=== PATIENT | female | born 1990 | race Caucasian/White ===

== ENCOUNTER 2016-09-17 18:59 | Emergency (ER) | payer OTHER ==
[~2016-09-17] VITALS: Ht 167.6 cm; Wt 118.4 kg
[~2016-09-17 18:59] MED LIST: CETI10CA
[2016-09-17 19:00] VITALS: BP 127/65
--- NOTE | 2016-09-17 19:55 | PHYS DOC ---
General Chief Complaint: SEXUALLY TRANSMITTED DISEASE Stated Complaint: ,STD CHECK Time Seen by MD: 19:18 Source: patient Exam Limitations: no limitations Problems: History of Present Illness Initial Comments Pt is 25/F to ED requesting test. Pt states last period 08/06, she is A1 in past. States that last time she felt like this she was . If not requests STI check. No vaginal discharge/dyspareunia/urinary sx/n/v/abd pain. Pt is smoker, does not take vitamins. Pt is established with [facility]. Timing/Duration: week Severity/Quality: moderate Location: other Radiation: none Activities at Onset: none Prior Genitourinary Problems: similar symptoms Sexual [place] History: single partner Modifying Factors: improves with other Associated Symptoms: other Allergies: Coded Allergies: No Known Drug Allergies (Unverified , 09/14/13) Past Medical History Medical History: no pertinent history Surgical History: noncontributory Para: 1 : 2 Social History Smoker: cigarettes Alcohol: none Drugs: none Review of Systems Constitutional: denies chills, denies fever Respiratory: denies cough, denies shortness of breath Cardiovascular: denies chest pain, denies palpitations Gastrointestinal: denies nausea, denies vomiting Genitourinary: see HPI Musculoskeletal: denies back pain, denies joint swelling Psychiatric/Neurological: denies headache, denies numbness Physical Exam General Appearance: no apparent distress, obese HEENT: normal ENT inspection Neck: non-tender, supple Cardiovascular/Respiratory: normal peripheral pulses, no respiratory distress Gastrointestinal: normal bowel sounds, non tender, soft Back: no CVA tenderness, no vertebral tenderness Extremities: non-tender, normal inspection Neurologic/Psychiatric: cone former II-XII nml as tested, no motor/sensory deficits, alert, normal mood/affect, oriented x 3 Skin: normal color, warm/dry Orders, Labs, Meds urine + UA unremarkable Departure Time of Disposition: 20:50 Disposition: 01 HOME, SELF-CARE Diagnosis: Condition: GOOD Patient Instructions: ABCs of , Medicines During Additional Instructions: Drink plenty of fluids to avoid dehydration, gatorade or water. Stop smoking. Start vitamins. Call your OB tomorrow morning to schedule initial OB evaluation. Return to ED with new or changing symptoms. LIBERTAD WEISS DO Sep 17, 2016 19:55
[2016-09-17 20:22] LABS: CLARITY,URINE HAZY; COLOR,URINE YELLOW; GLUCOSE,URINE NEG (NEG)
[2016-09-17 20:23] LABS: BILIRUBIN,URINE NEG (NEG); NITRITE,URINE NEG (NEG); UROBILINOGEN,URINE 0.2 mg/dL (0.2 mg/dL)
[2016-09-17 20:28] LABS: BACTERIA,URINE FEW /HPF (0-FEW); SQUAMOUS EPITHELIAL CELL,UR MANY /LPF
== END 2016-09-17 20:55 | disposition home or self-care (01) ==
LOC: ER 18:59
DX: Z32.01 Encounter for pregnancy test, result positive (principal); F17.210 Nicotine dependence, cigarettes, uncomplicated
CPT/HCPCS: 81001; 81025; 84703; 99283

== ENCOUNTER 2016-10-06 23:18 | Emergency (ER) | payer OTHER ==
[~2016-10-06] VITALS: Ht 167.6 cm; Wt 118.4 kg
--- NOTE | 2016-10-06 23:24 | ED.ADGEN ---
Past History Past Medical History: No Pertinent History, Depression, UTI, Other Past Surgical History: Other Smoking: Less than 1pk/day Alcohol Use: Heavy Drug Use: Other Adult General Chief Complaint Chief Complaint ".. [facility] [address] I don't know the doctor.. I had it on the ... but its mabel over with.. but I still feel and depressed... I am thinking about killing myself.. I did this once before .. I worried I may be again.. I had sex the other day..." .. my boy friend is shijamin head.. he just uses me for sex... and he just hangs out with another girl he 's gotten ...I did try to kill myself before by an over dose...with some antihistamine... I just so depressed..." HPI HPI Patient is a 25 year old female who presents with above hx and complaints. Patient states she would prevent suicide by taking [id number] meds. Patient had no other active plans for the process of committing suicide. Patient states she feels like she has depression associated with being . Pt is worried she may be again.. She advised she has had sex since the D and C . Pt. states she is having extreme mood swings, just like with . Pt. Does admit to alcohol use and driving after drinking today. Pt. at times is tearful and angry. Patient denies any intake of any ykfr-jis-rmjopnn meds or prescription meds tonight. Patient denies any illicit drug use. Patient awaiting interview with psychiatrist Dr. Merlos [facility]. Patient requested pelvic exam for possible STD, HIV testing because a recent unprotected sex. Review of Systems Review of Systems Constitutional: Denies fever or chills [. Pt. ] complaints of depression and suicidal ideation Eyes: Denies change in visual acuity, redness, or eye pain [] HENT: Denies nasal congestion or sore throat [] Respiratory: Denies cough or shortness of breath [] Cardiovascular: No additional information not addressed in HPI [] GI: Denies abdominal pain,, vomiting, bloody stools or diarrhea [] pt. complaints of nausea : Denies dysuria or hematuria [] Musculoskeletal: Denies back pain or joint pain [] Integument: Denies rash or skin lesions [] Neurologic: Denies headache, focal weakness or sensory changes [] Endocrine: Denies polyuria or polydipsia [] Family History Family History Refused to give his family history Current Medications Current Medications Current Medications Medications (Trade) Dose Ordered Sig/Clementina Start Time Stop Time Status Last Admin Dose Admin Lactated Ringer's (Iv Lactated Ringers) 1,000 ml @ 1,000 mls/hr Q1H 10/07/16 00:30 10/07/16 20:58 DC 10/07/16 02:31 1,000 MLS/HR See nursing for home meds Allergies Allergies Allergies Coded Allergies Type Severity Reaction Last Updated Verified No Known Drug Allergies 09/14/13 No Physical Exam Physical Exam Constitutional: In acute emotional distress, intoxicated in appearance. [] HENT: Normocephalic, atraumatic, bilateral external ears normal, oropharynx moist, no oral exudates, nose normal. [] Eyes: PERRLA, EOMI, conjunctiva injected, no discharge. [] Neck: Normal range of motion, no tenderness, supple, no stridor. [] Cardiovascular:Heart rate regular rhythm, no murmur [] Lungs & Thorax: Bilateral breath sounds equal at apexes with scattered wheezes on auscultation [] Abdomen: Bowel sounds normal, soft, no tenderness, no masses, no pulsatile masses. Obese. Skin: Warm, dry, no erythema, no rash. [] Back: No tenderness, no CVA tenderness. [] Extremities: No tenderness, no cyanosis, no clubbing, ROM intact, no edema. [] Neurologic: Alert and oriented X 3, normal motor function, normal sensory function, no focal deficits noted. Slightly wide gait and mild discoordinated. Psychologic: Affect anxious, angry, agitated, judgement poor insight, mood depressed. Expresses suicidal ideation. Denies hallucinations Current Patient Data Vital Signs Vital Signs Date Time Temp Pulse Resp B/P Pulse Ox O2 Delivery O2 Flow Rate FiO2 10/07/16 02:03 97.9 88 18 97 Room Air 10/07/16 02:03 115/62 Lab Results Laboratory Tests Test 10/07/16 00:15 10/07/16 02:25 10/07/16 03:20 Urine Collection Type Unknown Urine Color Yellow Urine Clarity Clear Urine pH 6.5 Urine Specific Elmo 1.025 Urine Protein Neg (NEG-TRACE) Urine Glucose (UA) Negmg/dL (NEG) Urine Ketones (Stick) Tracemg/dL (NEG) Urine Blood Neg (NEG) Urine Nitrite Neg (NEG) Urine Bilirubin Neg (NEG) Urine Urobilinogen Dipstick 0.2mg/dL (0.2 mg/dL) Urine Leukocyte Esterase Neg (NEG) Urine RBC Rare/HPF (0-2) Urine WBC Occ/HPF (0-4) Urine Squamous Epithelial Cells Occ/LPF Urine Bacteria 0/HPF (0-FEW) Urine Opiates Screen Neg (NEG) Urine Methadone Screen Neg (NEG) Urine Barbiturates Neg (NEG) Urine Phencyclidine Screen Neg (NEG) Urine Amphetamine/Methamphetamine Neg (NEG) Urine Benzodiazepines Screen Neg (NEG) Urine Cocaine Screen Neg (NEG) Urine Cannabinoids Screen Pos (NEG) Urine Ethyl Alcohol Neg (NEG) White Blood Count 7.1x10^3/uL (4.0-11.0) Red Blood Count 4.84x10^6/uL (3.50-5.40) Hemoglobin 12.9g/dL (12.0-15.5) Hematocrit 39.9% (36.0-47.0) Mean Corpuscular Volume 82fL (79-100) Mean Corpuscular Hemoglobin 27pg (25-35) Mean Corpuscular Hemoglobin Concent 32g/dL (31-37) Red Cell Distribution Width 15.2% (11.5-14.5) H Platelet Count 238x10^3/uL (140-400) Neutrophils (%) (Auto) 59% (31-73) Lymphocytes (%) (Auto) 31% (24-48) Monocytes (%) (Auto) 8% (0-9) Eosinophils (%) (Auto) 2% (0-3) Basophils (%) (Auto) 1% (0-3) Neutrophils # (Auto) 4.2x10^3uL (1.8-7.7) Lymphocytes # (Auto) 2.2x10^3/uL (1.0-4.8) Monocytes # (Auto) 0.6x10^3/uL (0.0-1.1) Eosinophils # (Auto) 0.1x10^3/uL (0.0-0.7) Basophils # (Auto) 0.1x10^3/uL (0.0-0.2) Prothrombin Time < 9.3SEC (9.4-11.4) L Prothrombin Time INR 0.8 (0.9-1.1) L PTT 24SEC (23-33) Maternal Serum HCG Beta Subunit 1851mIU/mL (0-6) H Sodium Level 141mmol/L (136-145) Potassium Level 4.3mmol/L (3.5-5.1) Chloride Level 106mmol/L (98-107) Carbon Dioxide Level 27mmol/L (21-32) Anion Gap 8 (6-14) Blood Urea Nitrogen 12mg/dL (7-20) Creatinine 0.8mg/dL (0.6-1.0) Estimated GFR (Cockcroft-Gault) 88.1 Glucose Level 84mg/dL (70-99) Calcium Level 8.7mg/dL (8.5-10.1) Magnesium Level 1.9mg/dL (1.8-2.4) Total Bilirubin 0.3mg/dL (0.2-1.0) Direct Bilirubin 0.1mg/dL (0.0-0.2) Aspartate Amino Transferase (AST) 16U/L (15-37) Alanine Aminotransferase (ALT) 16U/L (14-59) Alkaline Phosphatase 55U/L (46-116) Total Protein 7.1g/dL (6.4-8.2) Albumin 3.1g/dL (3.4-5.0) L Thyroid Stimulating Hormone (TSH) 1.902uIU/mL (0.358-3.740) Salicylates Level 1.4mg/dL (2.8-20.0) L Salicylate Last Dose Date Unknown Salicylate Last Dose Time Unknown Acetaminophen Level < 2.0mcg/mL (10-30) L Acetaminophen Last Dose Date Unknown Acetaminophen Last Dose Time Unknown Ethyl Alcohol Level < 10mg/dL (0-10) RPR Titer Additional Testing Non reactive (Non Reactive) HIV-1 Antibody Non reactive (Non Reactive) EKG EKG My interpretation EKG shows sinus rhythm at 83 bpm. No obvious acute changes. [] Radiology/Procedures Radiology/Procedures [] Course & Med Decision Making Course & Med Decision Making Pertinent Labs and Imaging studies reviewed. (See chart for details) Dr. Merlos- called 3:47 advised to have pt. restrained and involuntary committed at this time.. He advised she was risk for child and herself. Advised child to be placed in protective services. Start with involuntary IM injections of Zyprexa 10mg q 12 hrs. and Ativan 1 mg prn for agitation. Recommended patient to be placed involuntary at a psych facility if she was unwilling to go until over her acute psychiatric episode. Note pt. left ED just prior this information relayed to ED by Dr. Merlos. Police Dept. informed of her need for involuntary commitment and child be placed in protective services. Both [place] and [place] police department notified. Dr. White- Leanna called he advised he could see daughter and Pt. She was in her apt. on the second floor in [place]. She would not open the door. Office Cindy given information by Dr. Merlos. He advised he would involve his supervisor engraving in disposition of this incident. Report of Dr. Park- arrived by fax at 4:35. Copy report sent to Leanna STANTON per their request and need to clarify safety issue. . ( Need for child safety and concern about patient's safety- Dr. Park report shared with Leanna STANTON..) Notification also given to child protective services. [] Final Impression Final Impression 1. Depression[] 2. Alcohol Abuse 3. Post D and C on 09/26. 4. Suicidal ideation 5. Hx. G3, T1, 2 Induced D&C Abortions 6. Tobacco Abuse Problems: Dragon Disclaimer Aj Disclaimer This electronic medical record was generated, in whole or in part, using a voice recognition dictation system. LORIN LOMAS MD Oct 06, 2016 23:24
[2016-10-07] MEDS ORDERED: IV RINGERS SOLUTION,LACTATED 1,000 ML IV SCH (00:30)
--- NOTE | 2016-10-07 00:52 | EKG ---
[address] [address] Test Date: 2016-10-07 Test Time: 00:51:57 Pat Name: PADILLA SESAY Department: Room: Gender: F Employment Law Attorney: LUCRECIA : 1990 Requested By: LORIN LOMAS Order Number: [id number] Reading MD: Measurements Intervals [place] Rate: 83 P: 40 DC: 160 QRS: 21 QRSD: 76 T: 38 QT: 342 QTc: 407 Interpretive Statements SINUS RHYTHM OTHERWISE NORMAL ECG RI6.01 Unconfirmed report No previous ECG available for comparison
[2016-10-07 01:06] LABS: BARBITURATES NEG (NEG); BENZODIAZEPINES NEG (NEG); CANNABINOIDS POS (NEG); COCAINE NEG (NEG); METHADONE NEG (NEG); OPIATES NEG (NEG); PHENCYCLIDINE NEG (NEG)
[2016-10-07 01:08] LABS: AMPHETAMINE/METHAMPHETAMINE NEG (NEG)
[2016-10-07 01:15] LABS: BACTERIA,URINE 0 /HPF (0-FEW); BILIRUBIN,URINE NEG (NEG); CLARITY,URINE CLEAR; COLOR,URINE YELLOW; GLUCOSE,URINE NEG (NEG); NITRITE,URINE NEG (NEG); RBC,URINE RARE /HPF (0-2); SQUAMOUS EPITHELIAL CELL,UR OCC /LPF; UROBILINOGEN,URINE 0.2 mg/dL (0.2 mg/dL); WBC,URINE OCC /HPF (0-4)
--- NOTE | 2016-10-07 01:55 | ACF ---
Admission Criteria Forms PSYCHIATRIC DISORDERS Clinical Indications for Inpatient Care (Place 'X' for any and all applicable criteria): Ongoing inpatient care may be needed for ANY ONE of the following(1)(2)(3)(4)(6) (7)(8): [X]I. Danger to self or others not manageable at lower level of care. [ ]II. Grave disability (eg, inability to perform self care necessary at lower level of care) [ ]III. Agitation or inappropriate behavior interfering with care for primary condition (eg, attempting to discontinue lines or drains prematurely, unable to cooperate with respiratory care) [ ]IV. Severe disability or disorder indicated by ALL of the following: [ ]a) Severe behavioral health disorder-related symptoms or condition indicated by ANY ONE of the following: [ ]i) Severe problem with cognition, memory, judgment, or impulse control [ ]ii) Severe clinical manifestations (eg, hallucinations, delusions, other acute psychotic symptoms, nathan, extreme agitation or anxiety) [ ]b) Patient management at lower level of care is not feasible until acute intervention or modification is initiated. Extended stay beyond goal length of stay for the primary condition may be indicated when ANY ONE of the following is present: (1)(2)(3)(4): [ ]a) Patient is a danger to self or others and not manageable at lower level of care. [ ]b) Behavior crisis management, including physical or chemical restraints, is required and is not available at a lower level of care. [ ]c) Behavioral symptoms (e.g., agitation, somnolence, inappropriate behavior) are present, and are not manageable at a lower level of care. [ ]d) Patient cannot understand follow-up treatment and crisis plan. [ ]e) Provider and supports are not sufficiently available at lower level of care. [ ]f) Patient cannot participate (e.g., verify absence of plan for harm) and is in needed of monitoring. The original [employer] content created by [employer] has been revised. The portions of the content which have been revised are identified through the use of italic text or in bold, and [facility] [employer] has neither reviewed nor approved the modified material. All other unmodified content is copyright The [facility]. Please see references footnoted in the original [facility] edition 2016 NABOR RUCKER Oct 07, 2016 01:55
[2016-10-07 02:03] VITALS: BP 115/62
[2016-10-07 02:41] LABS: BASO # 0.1 x10^3/uL (0.0-0.2); BASO % 1 % (0-3); EOS # 0.1 x10^3/uL (0.0-0.7); EOS % 2 % (0-3); HEMATOCRIT 39.9 % (36.0-47.0); HEMOGLOBIN 12.9 g/dL (12.0-15.5); LYMPH # 2.2 x10^3/uL (1.0-4.8); LYMPH % 31 % (24-48); MEAN CORPUSCULAR HEMOGLOBIN 27 pg (25-35); MEAN CORPUSCULAR HGB CONC 32 g/dL (31-37); MEAN CORPUSCULAR VOLUME 82 fL (79-100); MONO # 0.6 x10^3/uL (0.0-1.1); MONO % 8 % (0-9); NEUT # 4.2 x10^3uL (1.8-7.7); NEUT % 59 % (31-73); PLATELET COUNT 238 x10^3/uL (140-400); RED BLOOD COUNT 4.84 x10^6/uL (3.50-5.40); RED CELL DISTRIBUTION WIDTH 15.2 % (11.5-14.5); WHITE BLOOD COUNT 7.1 x10^3/uL (4.0-11.0)
[2016-10-07 02:54] LABS: ALBUMIN 3.1 g/dL (3.4-5.0); CALCIUM 8.7 mg/dL (8.5-10.1); CREATININE 0.8 mg/dL (0.6-1.0); DIRECT BILIRUBIN 0.1 mg/dL (0.0-0.2); GFR 88.1; MAGNESIUM 1.9 mg/dL (1.8-2.4); POTASSIUM 4.3 mmol/L (3.5-5.1); TOTAL BILIRUBIN 0.3 mg/dL (0.2-1.0); TOTAL PROTEIN 7.1 g/dL (6.4-8.2)
[2016-10-07 02:55] LABS: ACETAMIN < 2.0 mcg/mL (10-30); SALIC 1.4 mg/dL (2.8-20.0)
[2016-10-07] MEDS ORDERED: CITA10TA4 PO (12:02)
[2016-10-07] MEDS ORDERED: TRAZ50TA15 PO (12:02)
[2016-10-08 05:09] LABS: RPR REFLEX Non Reactive (Non Reactive)
== END 2016-10-07 03:50 | disposition left against medical advice (07) ==
LOC: ER 23:49 → EDBD 23:49 → ER 10-07 03:50
DX: F32.9 Major depressive disorder, single episode, unspecified (principal); R45.851 Suicidal ideations; O03.9 Complete or unspecified spontaneous abortion without complication; F10.10 Alcohol abuse, uncomplicated; F17.200 Nicotine dependence, unspecified, uncomplicated; Z87.440 Personal history of urinary (tract) infections
CPT/HCPCS: 36415; 80048; 80076; 80305; 80320; 81001; 83735; 84443; 84702; 85027; 85610; 85730; 86592; 86593; 86703; 93005; 96360; 99285; G6038; J7120; G0480; G0481; 80196

== ENCOUNTER 2016-10-07 06:01 | Emergency (ER) | payer OTHER ==
[~2016-10-07] VITALS: Ht 167.6 cm; Wt 118.4 kg
[2016-10-07] MEDS ORDERED: LORAZEPAM 1 MG TABLET. ONE (06:18)
[2016-10-07] MEDS ORDERED: OLANZAPINE ZYDIS 5 MG TAB.RAPDIS ONE (06:19)
[2016-10-07] MEDS ORDERED: LORAZEPAM 1 MG TABLET. PO ONE (08:00)
[2016-10-07] MEDS ORDERED: OLANZAPINE 2.5 MG TABLET PO ONE (08:00)
[2016-10-07 10:00] VITALS: BP 108/61
[2016-10-07] MEDS ORDERED: TRAZ50TA15 PO (12:02)
[2016-10-07] MEDS ORDERED: CITA10TA4 PO (12:02)
--- NOTE | 2016-10-07 13:59 | ED.ADGEN ---
Past History Past Medical History: No Pertinent History, Depression, UTI, Other Past Surgical History: Tonsillectomy Smoking: Less than 1pk/day Alcohol Use: Heavy Drug Use: Marijuana Adult General HPI HPI Patient is a 25-year-old female returns to the emergency department via [place] police after eloping earlier this morning. Patient was seen and evaluated for suicidal ideation. She was screened by psychiatrist who recommended patient be involuntarily held in place and a psychiatric facility. The patient managed to gather up her closely facility. At that point, please department was called patient was brought back. To me she denies any suicidal ideation. She does admit depression and that the past she has had thoughts of suicide but denies any suicidal ideation or plan at this point. She has previously been treated for depression. She reports multiple recent stresses. Review of Systems Review of Systems Constitutional: Denies fever or chills [] Eyes: Denies change in visual acuity, redness, or eye pain [] HENT: Denies nasal congestion or sore throat [] Respiratory: Denies cough or shortness of breath [] Cardiovascular: No additional information not addressed in HPI [] GI: Denies abdominal pain, nausea, vomiting, bloody stools or diarrhea [] : Denies dysuria or hematuria [] Musculoskeletal: Denies back pain or joint pain [] Integument: Denies rash or skin lesions [] Neurologic: Denies headache, focal weakness or sensory changes [] Endocrine: Denies polyuria or polydipsia [] Current Medications Current Medications Current Medications Medications (Trade) Dose Ordered Sig/Clementina Start Time Stop Time Status Last Admin Dose Admin Lorazepam (Ativan) 1 mg STK-MED ONCE 10/07/16 06:18 10/07/16 11:27 DC Olanzapine (Zyprexa Zydis) 5 mg STK-MED ONCE 10/07/16 06:19 10/07/16 11:27 DC Olanzapine (Zyprexa) 10 mg 1X ONCE 10/07/16 08:00 10/07/16 08:02 DC Allergies Allergies Allergies Coded Allergies Type Severity Reaction Last Updated Verified No Known Drug Allergies 09/14/13 No Physical Exam Physical Exam Constitutional: Well developed, well nourished, no acute distress, non-toxic appearance. [] HENT: Normocephalic, atraumatic, bilateral external ears normal, oropharynx moist, no oral exudates, nose normal. [] Eyes: PERRLA, EOMI, conjunctiva normal, no discharge. [] Neck: Normal range of motion, no tenderness, supple, no stridor. [] Cardiovascular:Heart rate regular rhythm, no murmur [] Lungs & Thorax: Bilateral breath sounds clear to auscultation [] Abdomen: Bowel sounds normal, soft, no tenderness, no masses, no pulsatile masses. [] Skin: Warm, dry, no erythema, no rash. [] Back: No tenderness, no CVA tenderness. [] Extremities: No tenderness, no cyanosis, no clubbing, ROM intact, no edema. [] Neurologic: Alert and oriented X 3, normal motor function, normal sensory function, no focal deficits noted. [] Psychologic: Affect normal, judgement normal, mood normal. [] Current Patient Data Vital Signs Vital Signs Date Time Temp Pulse Resp B/P Pulse Ox O2 Delivery O2 Flow Rate FiO2 10/07/16 10:00 98.3 75 20 108/61 99 Room Air EKG EKG [] Radiology/Procedures Radiology/Procedures [] Course & Med Decision Making Course & Med Decision Making Pertinent Labs and Imaging studies reviewed. (See chart for details) I was able review the labs and notes from earlier today. The patient's mother did show up to offer supportive provide additional information. The patient has previously been evaluated for bipolar disorder but was decided that she did not have bipolar disorder but rather major impressive disorder. The patient's mother reports that she had previously been on medication but her and the patient admitted that she has not taken her medications when she ran out several months ago. They now report good social support for her. I did explain how at this point after evaluation by the previous ER physician and the psychiatrist it would be difficult for me to unilaterally decided that they do not require inpatient admission. Ultimately, multiple facilities were contacted about accepting the patient and all refuse. However, [facility] did set in place her on the waiting list that she was screened by the guidance Center. After a long and extensive screening process the guidance Center believes that the patient is safe for discharge. They have confirmed her social support system. They have arranged immediate follow-up for her. They have educated her on crisis management and resources. Is able to detail her previous antidepressant regimen to me. I restarted those. I have reiterated to the patient the importance of compliance with those medications and commended her for seeking help and encouraged her to do the same if she should become uncomfortable again have any thoughts of self- harm. She assures me she will make use of the resources given to her today. She tells me she will follow-up as instructed. She will return emergency department sooner she develops any new or worsening symptoms. [] Final Impression Final Impression Major depressive disorder [] Problems: Dragon Disclaimer Dragon Disclaimer This electronic medical record was generated, in whole or in part, using a voice recognition dictation system. KENYETTA RAZO MD Oct 07, 2016 13:59
== END 2016-10-07 13:37 | disposition home or self-care (01) ==
LOC: ER 06:14
DX: F32.9 Major depressive disorder, single episode, unspecified (principal); F17.200 Nicotine dependence, unspecified, uncomplicated; F10.10 Alcohol abuse, uncomplicated; F12.10 Cannabis abuse, uncomplicated; Z87.440 Personal history of urinary (tract) infections
CPT/HCPCS: 99284

== ENCOUNTER 2016-12-30 22:19 | Emergency (ER) | payer OTHER ==
[~2016-12-30] VITALS: Ht 167.6 cm; Wt 117.9 kg
[~2016-12-30 22:19] MED LIST changes: +CITA10TA4 PO; +TRAZ50TA15 PO
[2016-12-30 22:37] VITALS: BP 160/70
--- NOTE | 2016-12-30 22:47 | PHYS DOC ---
Past History Past Medical History: UTI, Other Past Surgical History: No Surgical History Smoking: Less than 1pk/day Alcohol Use: None Drug Use: None Adult General Chief Complaint Chief Complaint: VAGINAL PROBLEM [facility] 6-year-old female complaining of vaginal discharge and dysuria. Denies pelvic pain or fever. No abdominal pain. Otherwise asymptomatic .no flank pain Review of Systems Review of Systems Constitutional: Denies fever or chills [] Eyes: Denies change in visual acuity, redness, or eye pain [] HENT: Denies nasal congestion or sore throat [] Respiratory: Denies cough or shortness of breath [] Cardiovascular: No additional information not addressed in HPI [] GI: Denies abdominal pain, nausea, vomiting, bloody stools or diarrhea [] : Denies dysuria or hematuria [] Musculoskeletal: Denies back pain or joint pain [] Integument: Denies rash or skin lesions [] Neurologic: Denies headache, focal weakness or sensory changes [] Endocrine: Denies polyuria or polydipsia [] Allergies Allergies Allergies Coded Allergies Type Severity Reaction Last Updated Verified No Known Drug Allergies 09/14/13 No Physical Exam Physical Exam Well-appearing patient in no acute distress smiling and comfortable appearing. Pelvic with normal external genitalia trace amount of white discharge no CMT and no adnexal mass or tenderness nontender fundus. No odor. Nurse Zhane present for pelvic Constitutional: Well developed, well nourished, no acute distress, non-toxic appearance. [] HENT: Normocephalic, atraumatic, bilateral external ears normal, oropharynx moist, no oral exudates, nose normal. [] Eyes: PERRLA, EOMI, conjunctiva normal, no discharge. [] Neck: Normal range of motion, no tenderness, supple, no stridor. [] Cardiovascular:Heart rate regular rhythm, no murmur [] Lungs & Thorax: Bilateral breath sounds clear to auscultation [] Abdomen: Bowel sounds normal, soft, no tenderness, no masses, no pulsatile masses. [] Skin: Warm, dry, no erythema, no rash. [] Back: No tenderness, no CVA tenderness. [] Extremities: No tenderness, no cyanosis, no clubbing, ROM intact, no edema. [] Neurologic: Alert and oriented X 3, normal motor function, normal sensory function, no focal deficits noted. [] Psychologic: Affect normal, judgement normal, mood normal. [] Current Patient Data Vital Signs Vital Signs Date Time Temp Pulse Resp B/P (MAP) Pulse Ox O2 Delivery O2 Flow Rate FiO2 12/30/16 22:37 98.5 74 20 98 EKG EKG [] Radiology/Procedures Radiology/Procedures [] Course & Med Decision Making Course & Med Decision Making Pertinent Labs and Imaging studies reviewed. (See chart for details) Signs and symptoms consistent with possible BV confirmed by labs. GC and chlamydia pending patient is aware of this.. Non patient. No further workup or treatment indicated. Flagyl dose given in ED and prescription dispensed. She will follow up with PCP and her home energy rater. She agrees with outpatient follow-up and strict return precautions were given [] Dragon Disclaimer Dragon Disclaimer This chart was dictated in whole or in part using Voice Recognition software in a busy, high-work load, and often noisy Emergency Department environment. It may contain unintended and wholly unrecognized errors or omissions. Departure Departure: Referrals: PCP,NO (PCP) Scripts Metronidazole (FLAGYL) 500 Mg Tablet 1 TAB PO BID, #14 TAB Prov: DENG PIERSON MD 12/30/16 DENG PIERSON MD Dec 30, 2016 22:47
[2016-12-30 23:23] LABS: BACTERIA,URINE FEW /HPF (0-FEW); BILIRUBIN,URINE NEG (NEG); CLARITY,URINE CLEAR; COLOR,URINE YELLOW; GLUCOSE,URINE NEG (NEG); NITRITE,URINE NEG (NEG); RBC,URINE 0 /HPF (0-2); SQUAMOUS EPITHELIAL CELL,UR FEW /LPF; UROBILINOGEN,URINE 0.2 mg/dL (0.2 mg/dL); WBC,URINE OCC /HPF (0-4)
[2016-12-30 23:24] LABS: U PREG PATIENT NEGATIVE (NEG)
[2016-12-30] MEDS ORDERED: metroNIDAZOLE 500 MG TABLET ONE (23:47)
[2016-12-30] MEDS ORDERED: METR500T PO (23:49)
[2017-01-01 17:09] LABS: CHLAMYDIA PROBE Positive (Negative)
== END 2016-12-30 23:56 | disposition home or self-care (01) ==
LOC: ER 22:19
DX: N89.8 Other specified noninflammatory disorders of vagina (principal); R30.0 Dysuria; F17.200 Nicotine dependence, unspecified, uncomplicated; Z87.440 Personal history of urinary (tract) infections
CPT/HCPCS: 36415; 81001; 81025; 87491; 87591; 99284; Q0111

== ENCOUNTER 2017-01-13 22:29 | Emergency (ER) | payer OTHER ==
[~2017-01-13] VITALS: Ht 167.6 cm; Wt 117.9 kg
[~2017-01-13 22:29] MED LIST changes: +METR500T PO
--- NOTE | 2017-01-13 22:58 | PHYS DOC ---
Past History Past Medical History: UTI, Other Past Surgical History: No Surgical History Smoking: Less than 1pk/day Alcohol Use: None Drug Use: None Adult General Chief Complaint Chief Complaint: VAGINAL PROBLEM HPI HPI Patient is a 26-year-old female presenting to the emergency department for evaluation of vaginal pain and vaginal discharge in the setting of recent chlamydia diagnosis and being on Flagyl for BV and Cipro for her chlamydia. She says that it feels worse since the treatment and that the discharge is thick and white in her vagina feels painful. She denies any fevers chills nausea vomiting dysuria hematuria or other systemic symptoms. She is in no obvious distress with normal vital signs. Review of Systems Review of Systems Constitutional: Denies fever or chills [] GI: Denies abdominal pain, nausea, vomiting, bloody stools or diarrhea [] : Denies dysuria or hematuria [] Musculoskeletal: Denies back pain or joint pain [] Allergies Allergies Allergies Coded Allergies Type Severity Reaction Last Updated Verified No Known Drug Allergies 09/14/13 No Physical Exam Physical Exam Constitutional: Well developed, well nourished, no acute distress, non-toxic appearance. [] Cardiovascular:Heart rate regular rhythm, no murmur [] Lungs & Thorax: Bilateral breath sounds clear to auscultation [] Abdomen: Bowel sounds normal, soft, no tenderness, no masses, no pulsatile masses. GREY TENDER: Vaginal mucosa appears red and irritated and friable. There is no external rash noted. There is thick white discharge but there is no adnexal or cervical motion tenderness. Back: No tenderness, no CVA tenderness. [] EKG EKG [] Radiology/Procedures Radiology/Procedures [] Course & Med Decision Making Course & Med Decision Making Patient's history and physical exam was consistent with a yeast infection. Patient will be given a prescription for one dose Diflucan and told to use over- the-counter Monistat. Patient told that she needs to get a GREY TENDER and I gave her referral information. Patient aware and agreeable with plan for discharge and verbalized understanding of the need for short-term follow-up in the strict ER return precautions discussed including worsening pain fevers vomiting or other general concerns. Dragon Disclaimer Dragon Disclaimer This chart was dictated in whole or in part using Voice Recognition software in a busy, high-work load, and often noisy Emergency Department environment. It may contain unintended and wholly unrecognized errors or omissions. Departure Departure: Impression: Primary Impression: Candidiasis, vagina Disposition: 01 HOME, SELF-CARE Condition: GOOD Patient Instructions: Vaginitis, [id number] Additional Instructions: Follow with a GREY TENDER for continued vaginal issues. Use OTC Monistat. KENYETTA KING DO Jan 13, 2017 22:57
[2017-01-13 23:00] VITALS: BP 116/66
[2017-01-15 16:08] LABS: CHLAMYDIA PROBE Positive (Negative)
[2017-01-16] MEDS ORDERED: cefTRIAXone IM 250 MG VIAL IM ONE (12:30)
[2017-01-16] MEDS ORDERED: AZITHROMYCIN 250 MG TABLET. PO ONE (12:30)
== END 2017-01-14 00:47 | disposition home or self-care (01) ==
LOC: ER 22:29
DX: B37.3 Candidiasis of vulva and vagina (principal); F17.200 Nicotine dependence, unspecified, uncomplicated; Z87.440 Personal history of urinary (tract) infections
CPT/HCPCS: 36415; 87491; 87591; 99284; Q0111

== ENCOUNTER → 2017-01-16 | Outpatient (CLI) | payer OTHER ==
[~2017-01-16] MED LIST changes: +AZITHROMYCIN 250 MG TABLET. PO ONE; +cefTRIAXone IM 250 MG VIAL IM ONE
[2017-01-16 12:23] VITALS: BP 104/69
--- NOTE | 2017-01-16 20:04 | NUR ---
Pt ambulated to unit for outpatient IM injection. VS taken per flowsheet. IM Rocephin given in right upper arm; pt tolerated well. Pt ambulated off unit.
== END | disposition home or self-care (01) ==
LOC: OPS 12:10
PROVIDERS: ATTEND Emergency Medicine
DX: A74.89 Other chlamydial diseases (principal)
CPT/HCPCS: 96372; J0456; J0696

== ENCOUNTER 2017-04-13 20:37 | Emergency (ER) | payer OTHER ==
[~2017-04-13] VITALS: Ht 167.6 cm; Wt 117.9 kg
[~2017-04-13 20:37] MED LIST changes: -AZITHROMYCIN 250 MG TABLET. PO ONE; -cefTRIAXone IM 250 MG VIAL IM ONE
[2017-04-13 20:46] VITALS: BP 134/89
[2017-04-13] MEDS ORDERED: IBUPROFEN 400 MG TABLET. PO ONE (21:00)
[2017-04-13] MEDS ORDERED: AZITHROMYCIN 250 MG TABLET. PO ONE (21:00)
[2017-04-13] MEDS ORDERED: cefTRIAXone IM 250 MG VIAL IM ONE (21:00)
--- NOTE | 2017-04-13 21:49 | PHYS DOC ---
Past History Past Medical History: No Pertinent History Past Surgical History: No Surgical History Smoking: Less than 1pk/day Alcohol Use: Occasionally Drug Use: None Adult General Chief Complaint Chief Complaint: HEADACHE HPI HPI 26-year-old female presenting to the emergency department with today with a headache chest pain abdominal pain and reported vaginal itchiness. She states this started about 7 days ago. Nothing makes it better or worse. It is nonradiating and without alleviating factors. She does have a new sexual partner. She denies being exposed to STDs that she is aware of though. She states her headache is similar to previous headaches. It is not sudden in onset. She denies numbness weakness or tingling. Her chest pain is sharp intermittent. She denies having diabetes high blood pressure high cholesterol. She denies unilateral leg swelling hemoptysis or personal or family history of blood clotting disorders. She is not currently taking estrogen therapy. PERC neg. Review of systems is negative for fevers or chills, negative for nausea vomiting diarrhea or constipation. All other review of systems is negative unless otherwise noted in history of present illness. ED course: 26-year-old female presenting to the emergency department today with headache chest pain abdominal pain and vaginal itchiness. Vital signs afebrile. Pulse within normal limits. Patient is well-appearing. Lungs are clear to auscultation. Abdomen is soft and nontender. Patient self swabbed. Rocephin and azithromycin given empirically. wet prep neg otherwise. g/c sent. The patient was then discharged home in stable condition to follow up with their primary care physician over the next 2-3 days. They were to return if their symptoms worsened or if they were concerned for any reason. [id number] discharge instructions and return precautions were given. Patient's questions were answered to their satisfaction. Patient is comfortable plan. Review of Systems Review of Systems SEE ABOVE. Current Medications Current Medications Current Medications Medications (Trade) Dose Ordered Sig/Clementina Start Time Stop Time Status Last Admin Dose Admin Azithromycin (Zithromax) 1,000 mg 1X ONCE 04/13/17 21:00 04/13/17 21:03 DC Ceftriaxone Sodium (Rocephin Im) 250 mg 1X ONCE 04/13/17 21:00 04/13/17 21:03 DC Ibuprofen (Motrin) 400 mg 1X ONCE 04/13/17 21:00 04/13/17 21:02 DC Allergies Allergies Allergies Coded Allergies Type Severity Reaction Last Updated Verified No Known Drug Allergies 01/14/17 No Physical Exam Physical Exam SEE ABOVE Constitutional: Well developed, well nourished, no acute distress, non-toxic appearance. HENT: Normocephalic, atraumatic, bilateral external ears normal, oropharynx moist, no oral exudates, nose normal. [] Eyes: PERRLA, EOMI, conjunctiva normal, no discharge. Neck: Normal range of motion, no tenderness, supple, no stridor. [] Cardiovascular:Heart rate regular rhythm, no murmur Lungs & Thorax: Bilateral breath sounds clear to auscultation [] Abdomen: Bowel sounds normal, soft, no tenderness, no masses, no pulsatile masses. Skin: Warm, dry, no erythema, no rash. [] Back: No tenderness, no CVA tenderness. Extremities: No tenderness, no cyanosis, no clubbing, ROM intact, no edema. [] Neurologic: Alert and oriented X 3, normal motor function, normal sensory function, no focal deficits noted. Psychologic: Affect normal, judgement normal, mood normal. [] Current Patient Data Vital Signs Vital Signs Date Time Temp Pulse Resp B/P (MAP) Pulse Ox O2 Delivery O2 Flow Rate FiO2 04/13/17 20:46 98.4 91 16 100 Room Air Lab Results Laboratory Tests Test 04/13/17 21:09 POC Urine HCG, Qualitative hcg negative (Negative) EKG EKG [] Radiology/Procedures Radiology/Procedures [] Course & Med Decision Making Course & Med Decision Making Pertinent Labs and Imaging studies reviewed. (See chart for details) [] Dragon Disclaimer Dragon Disclaimer This chart was dictated in whole or in part using Voice Recognition software in a busy, high-work load, and often noisy Emergency Department environment. It may contain unintended and wholly unrecognized errors or omissions. Departure Departure: Impression: Primary Impression: Headache Additional Impressions: Chest pain Abdominal pain Vaginal itching Disposition: HOME, SELF-CARE Condition: STABLE Referrals: PCP,PERLITA (PCP) Patient Instructions: Chest Pain (Nonspecific), General Headache Without Cause , Safe Sex Additional Instructions: Thank you for allowing us to participate in your care today. Followup with your primary care physician in 3 days if your symptoms do not improve. Call your Primary Doctor tomorrow and inform them of your visit today. If you do not have a primary care provider you can ask for a list of our primary care providers. Return to the emergency department you have any new or concerning findings. This should be evaluated by the primary care physician and any necessary consulting services for continued management within a few days after discharge. Return to emergency room if you have any new or concerning symptoms including but not limited to fever, chills, nausea, vomiting, intractable pain, any new rashes, chest pain, shortness of air, uncontrolled bleeding, difficulty breathing, and/or vision loss. Problem Qualifiers ELOISA CHÁVEZ MD Apr 13, 2017 21:49
[2017-04-13 21:57] LABS: COLOR,URINE YELLOW
[2017-04-13 21:58] LABS: BACTERIA,URINE FEW /HPF (0-FEW); NITRITE,URINE NEG (NEG); SQUAMOUS EPITHELIAL CELL,UR MANY /LPF; UROBILINOGEN,URINE 1 mg/dL (0.2 mg/dL)
[2017-04-13 22:04] LABS: BILIRUBIN,URINE NEG (NEG)
[2017-04-13 22:05] LABS: CLARITY,URINE CLEAR; GLUCOSE,URINE NEG (NEG)
[2017-04-13 22:07] LABS: U PREG PATIENT NEGATIVE (NEG)
--- NOTE | 2017-04-14 05:13 | EKG ---
[address] [address] Test Date: 2017-04-13 Test Time: 20:58:42 Pat Name: PADILLA SESAY Department: Room: Gender: F Velocity Shooter: LUCRECIA : 1990 Requested By: ELOISA CHÁVEZ Order Number: [id number] Reading MD: Measurements Intervals [place] Rate: 55 P: 0 [place]: 152 QRS: 45 QRSD: 80 T: 42 QT: 392 QTc: 377 Interpretive Statements SINUS RHYTHM NORMAL ECG RI6.01 No previous ECG available for comparison
--- NOTE | 2017-04-14 08:33 | RAD ---
Exam performed: 2 views of the chest. Indication: Chest pain today with shortness of air Date of Service:04/13/2017 10:46 PM . Comparison : None available Findings: PA and lateral radiographs of the chest reveal a normal cardiomediastinal contour. The lungs are clear. No pleural fluid is seen. The visualized osseous structures are unremarkable. Impression: Radiographically normal chest.
[2017-04-15 17:11] LABS: CHLAMYDIA PROBE Negative (Negative)
== END 2017-04-13 22:25 | disposition home or self-care (01) ==
LOC: ER 20:37
DX: R51 Headache (principal); R07.9 Chest pain, unspecified; R10.9 Unspecified abdominal pain; N89.9 Noninflammatory disorder of vagina, unspecified; F17.200 Nicotine dependence, unspecified, uncomplicated
CPT/HCPCS: 36415; 71020; 81001; 81025; 87491; 87591; 93005; 96372; 99285; J0456; J0696; Q0111

== ENCOUNTER → 2017-05-21 | Outpatient (CLI) | payer OTHER ==
--- NOTE | 2017-05-21 16:53 | RAD ---
Pelvic ultrasound, 05/21/2017: History: Dysfunctional uterine bleeding Transabdominal and transvaginal scans were obtained. The uterus measures 8.8 x 6.4 x 5.5 cm. The central uterine echo complex is slightly thickened measuring 1.2 cm in greatest AP dimension. A tiny Nabothian cyst is noted in the cervix. The ovaries are of normal size. There is blood flow in both ovaries. No adnexal mass is evident. A small amount of free fluid is present in the pelvis. IMPRESSION: 1. Mild nonspecific thickening of the central uterine echo complex. 2. The pelvic ultrasound is otherwise unremarkable.
== END | disposition home or self-care (01) ==
LOC: US 14:46
PROVIDERS: ATTEND Physician Assistant Medical
DX: N93.8 Other specified abnormal uterine and vaginal bleeding (principal); F17.200 Nicotine dependence, unspecified, uncomplicated
CPT/HCPCS: 76830; 76856

== ENCOUNTER → 2017-05-26 | Emergency (ER) | payer OTHER ==
[2017-05-26 04:51] VITALS: BP 104/53
--- NOTE | 2017-05-26 05:12 | PHYS DOC ---
Past History Past Medical History: No Pertinent History Past Surgical History: No Surgical History Smoking: Less than 1pk/day Alcohol Use: Occasionally Drug Use: None Adult General Chief Complaint Chief Complaint: FOREIGN BODY VAGINA HPI HPI Patient is a 26-year-old female who presents here today concerned that she might have a retained tampon inside her vagina. Patient reports she placed a tampon in yesterday went to the bathroom and was unable to locate her tampon. Patient has no other complaints. Patient denies any other past medical history. No history of hypertension diabetes lung liver or kidney problems. Patient reports she smokes and drinks. Review of systems: Constitutional: Denies fever or chills Eyes: Denies change in visual acuity, redness, or eye pain HENT: Denies nasal congestion or sore throat All other systems were reviewed and found to be within normal limits, except as documented in this note. Physical exam Constitutional: Well developed, well nourished, no acute distress, non-toxic appearance. HENT: Normocephalic, atraumatic, bilateral external ears normal, oropharynx moist, no oral exudates, nose normal. Eyes: PERRLA, EOMI, conjunctiva normal, no discharge. Neck: Normal range of motion, no tenderness, supple, no stridor. Cardiovascular: Normal rate. Lungs & Thorax: No respiratory distress. Clear to auscultation Abdomen: Bowel sounds normal, soft, no tenderness, no masses, no pulsatile masses. Skin: Warm, dry, no erythema, no rash. Back: No tenderness, no CVA tenderness. Extremities: No tenderness, no cyanosis, no clubbing, ROM intact, no edema. Neurologic: Alert and oriented X 3, normal motor function, normal sensory function, no focal deficits noted. Psychologic: Affect normal, judgement normal, mood normal. ER physical exam was significant for an normal pelvic exam. There is no foreign body identified. There is a small amount of bleeding from the cervical os. Bimanual exam was unremarkable. There is non-tenderness to palpation. There is no discharge from her cervix. Assessment and plan: 1. Possible foreign retained body in the vagina. Physical exam reveals no foreign body inside the vagina. Patient is reassured and will be discharged home in stable condition. 2. Tobacco abuse: Discussed with patient's sensation. Concent provided. Allergies Allergies Allergies Coded Allergies Type Severity Reaction Last Updated Verified No Known Drug Allergies 11/21/17 No Current Patient Data Vital Signs Vital Signs Date Time Temp Pulse Resp B/P (MAP) Pulse Ox O2 Delivery O2 Flow Rate FiO2 05/26/17 04:51 98.4 82 16 100 Room Air EKG EKG [] Radiology/Procedures Radiology/Procedures [] Course & Med Decision Making Course & Med Decision Making Pertinent Labs and Imaging studies reviewed. (See chart for details) [] Dragon Disclaimer Dragon Disclaimer This electronic medical record was generated, in whole or in part, using a voice recognition dictation system. Departure Departure: Impression: Primary Impression: Vaginal foreign body Disposition: HOME, SELF-CARE Condition: IMPROVED Referrals: SEEMA UNGER (PCP) Patient Instructions: Exam, Normal, Adult, Smoking Cessation PARKER MONTALVO MD May 26, 2017 05:12
== END | disposition home or self-care (01) ==
LOC: ER 04:25
DX: T19.2XXA Foreign body in vulva and vagina, initial encounter (principal); F17.200 Nicotine dependence, unspecified, uncomplicated; X58.XXXA Exposure to other specified factors, initial encounter; Y93.89 Activity, other specified; Y99.8 Other external cause status; Y92.89 Other specified places as the place of occurrence of the external cause
CPT/HCPCS: 99283

== ENCOUNTER → 2017-10-20 | Outpatient (CLI) | payer OTHER ==
[2017-05-26 04:51] VITALS: BP 104/53
--- NOTE | 2017-10-20 15:55 | RAD ---
2 views of the Chest 10/20/2017 2:00 AM Indication: PRE OP Comparison: 2 views the chest April 13, 2017 Findings: There is no focal consolidation or infiltrate identified. There is no effusion or pneumothorax. The cardiomediastinal silhouette and pulmonary vasculature are within normal limits. No osseous abnormality is identified. Impression: No evidence of acute cardiopulmonary process.
== END | disposition home or self-care (01) ==
LOC: PMG 14:46
PROVIDERS: ATTEND Physician Assistant Medical
DX: Z01.818 Encounter for other preprocedural examination (principal)
CPT/HCPCS: 71046